=== PATIENT | male | born 1955 | race Caucasian/White ===

== ENCOUNTER → 2018-04-28 | Outpatient (CLI) | payer BC ==
--- NOTE | 2018-04-28 16:49 | US ---
EXAMINATION TYPE: US venous doppler duplex LE RT DATE OF EXAM: 04/28/2018 4:30 PM COMPARISON: NONE CLINICAL HISTORY: M79.669 PAIN IN LOWER RT LEG. Right lower leg pain and swelling following knee repl acement surgery on SIDE PERFORMED: Right TECHNIQUE: The lower extremity deep venous system is examined utilizing real time linear array sonog ed with graded compression, doppler sonography and color-flow sonography. VESSELS IMAGED: External Iliac Vein (EIV) Common Femoral Vein Deep Femoral Vein Greater Saphenous Vein * Femoral Vein Popliteal Vein Small Saphenous Vein * Proximal Calf Veins (* superficial vessels) Right Leg: Positive for DVT proximal popliteal vein through proximal calf veins IMPRESSION: There is evidence for acute deep venous thrombosis below the knee involving the popliteal and tibial veins.
== END | disposition home or self-care (01) ==
LOC: RADUSWWP 16:05
PROVIDERS: ATTEND Orthopaedic Surgery Adult Reconstructive Orthopaedic Surgery
DX: I82.431 Acute embolism and thrombosis of right popliteal vein (principal); I82.441 Acute embolism and thrombosis of right tibial vein

== ENCOUNTER → 2018-07-14 | Outpatient (CLI) | payer BC ==
[2018-07-14 16:40] LABS: T4, Free (Free Thyroxine) 0.9 ng/dL (0.80-1.80)
[2018-07-14 17:14] LABS: Iron Saturation 23.4 (15.00-50.00)
== END | disposition home or self-care (01) ==
LOC: LABWHC1 09:42
PROVIDERS: ATTEND Internal Medicine Critical Care Medicine
DX: G25.81 Restless legs syndrome (principal)
CPT/HCPCS: 36415; 82728; 83540; 83550; 84439; 84443

== ENCOUNTER 2019-10-31 12:35 | Emergency (ER) | payer MEDICARE, BC ==
[2019-10-31 12:45] VITALS: RESP 18; TEMP 98
[2019-10-31] MEDS ORDERED: LORazepam 1 MG TAB PO STA ×2 (13:03→21:10)
--- NOTE | 2019-10-31 13:05 | ED ---
Psych HPI - General Source: patient, family, RN notes reviewed Mode of arrival: ambulatory - History of Present Illness MD Complaint: suicidal ideation, feels depressed, other <Zacarias Rodriguez - Last Filed: 10/31/19 15:29> <Jossy Young - Last Filed: 11/04/19 11:38> - General Chief Complaint: Psychiatric Symptoms Stated Complaint: Mental Health Time Seen by Provider: 10/31/19 12:49 - History of Present Illness Initial Comments: This is a 64-year-old male with a history of anxiety disorders a significant feeling very very anxious recently. He is not a why. He's been on Paxil he's been on Xanax he has actually had the doses of these increased the Paxil dose and that she was increased from 20-30 and then lately up to 40 mg. This was 4 days ago. Also his Xanax prescription is been increased to 3 times a day. He states he's not having thoughts of hurting himself he normally will get relief from sleeping but has not recently. He states that he was willing kill himself would be with pills as he is not a violent person. He denies any alcohol intake or any illegal drug abuse. This is confirmed by his was present. No other medical issues at this time no other modifying factors (Zacarias Rodriguez) - Related Data Home Medications Medication Instructions Recorded Confirmed ALPRAZolam [Xanax] 0.25 mg PO TID PRN 10/31/19 10/31/19 Allopurinol [Zyloprim] 300 mg PO DAILY 10/31/19 10/31/19 Aspirin EC [Ecotrin Low Dose] 81 mg PO DAILY 10/31/19 10/31/19 Atenolol [Tenormin] 25 mg PO DAILY 10/31/19 10/31/19 Atorvastatin Calcium [Lipitor] 20 mg PO HS 10/31/19 10/31/19 PARoxetine HCL 40 mg PO DAILY 10/31/19 10/31/19 Testosterone Cypionate 400 mg IM Q30D 10/31/19 10/31/19 [Depo-Testosterone] rOPINIRole HCL [Requip] 0.5 mg PO HS 10/31/19 10/31/19 Previous Rx's Medication Instructions Recorded LORazepam [Ativan] 1 mg PO TID PRN 3 Days #9 tab 10/31/19 Allergies Allergy/AdvReac Type Severity Reaction Status Date / Time No Known Allergies Allergy Verified 10/31/19 17:36 Review of Systems ROS Other: All systems not noted in ROS Statement are negative. <Zacarias Rodriguez - Last Filed: 10/31/19 15:29> ROS Other: All systems not noted in ROS Statement are negative. <Jossy Young - Last Filed: 11/04/19 11:38> ROS Statement: Those systems with pertinent positive or pertinent negative responses have been documented in the HPI. Past Medical History Past Medical History: Hyperlipidemia, Hypertension Past Surgical History: Cholecystectomy, Hysterectomy, Orthopedic Surgery Past Psychological History: Anxiety, Bipolar Smoking Status: Never smoker Past Alcohol Use History: Rare Past Drug Use History: None Reported <Zacarias Rodriguez - Last Filed: 10/31/19 15:29> General Exam Limitations: no limitations General appearance: alert, anxious Head exam: Present: atraumatic, normocephalic, normal inspection Eye exam: Present: normal appearance, PERRL, EOMI. Absent: scleral icterus, conjunctival injection, periorbital swelling ENT exam: Present: normal exam, mucous membranes moist Neck exam: Present: normal inspection. Absent: tenderness, meningismus, lymphadenopathy Respiratory exam: Present: normal lung sounds bilaterally. Absent: respiratory distress, wheezes, rales, rhonchi, stridor Cardiovascular Exam: Present: regular rate, normal rhythm, normal heart sounds. Absent: systolic murmur, diastolic murmur, rubs, gallop, clicks GI/Abdominal exam: Present: soft, normal bowel sounds. Absent: distended, tenderness, guarding, rebound, rigid Extremities exam: Present: normal inspection, full ROM, normal capillary refill. Absent: tenderness, pedal edema, joint swelling, calf tenderness Back exam: Present: normal inspection Neurological exam: Present: alert, oriented X3, CN II-XII intact Psychiatric exam: Present: depressed, anxious, suicidal ideation Skin exam: Present: warm, dry, intact, normal color. Absent: rash <Zacarias Rodriguez - Last Filed: 10/31/19 15:29> - General Exam Comments Initial Comments: This is a well-developed well-nourished awake alert oriented times female he is anxious and rolling in bed back and forth (Zacarias Rodriguez) Course <Zacarias Rodriguez - Last Filed: 10/31/19 15:29> Vital Signs 10/31/19 10/31/19 10/31/19 12:41 17:24 21:18 Temperature 98.0 F Pulse Rate 72 72 79 Respiratory 18 18 18 Rate Blood Pressure 145/90 123/70 125/85 O2 Sat by Pulse 98 95 95 Oximetry - Reevaluation(s) Reevaluation #1: 10/31/19 15:29 The patient's care will be endorsed to Dr. Young after change. (Zacarias Rodriguez) Medical Decision Making <Jossy Young - Last Filed: 11/04/19 11:38> - Medical Decision Making Patient evaluated by the EPS nurse, psychatrist and myself. Patient not suicidal or homicidal. Requesting change in medications for morning anxiety. Psych recommends providing the patient with Ativan 1 mg TID prn for 2 days and patient has follow up appointment on Saturday. I discussed this with the patient and his who were agreeable to the plan. Patient instructed to return to the ED for any new or worsening symptoms. (Jossy Young) - Lab Data Lab Results 10/31/19 Range/Units 13:12 Urine Opiates Screen Not Detected (NotDetected) Ur Oxycodone Screen Not Detected (NotDetected) Urine Methadone Screen Not Detected (NotDetected) Ur Propoxyphene Screen Not Detected (NotDetected) Ur Barbiturates Screen Not Detected (NotDetected) U Tricyclic Antidepress Not Detected (NotDetected) Ur Phencyclidine Scrn Not Detected (NotDetected) Ur Amphetamines Screen Not Detected (NotDetected) U Methamphetamines Scrn Not Detected (NotDetected) U Benzodiazepines Scrn Detected H (NotDetected) Urine Cocaine Screen Not Detected (NotDetected) U Marijuana (THC) Screen Not Detected (NotDetected) Disposition <Zacarias Rodriguez - Last Filed: 10/31/19 15:29> Is patient prescribed a controlled substance at d/c from ED?: Yes When asked, does pt state using other controlled substances?: Yes If prescribed controlled substance>3 days was MAPS reviewed?: Prescribed <3 Days Time of Disposition: 21:10 <Jossy Young - Last Filed: 11/04/19 11:38> Clinical Impression: Acute anxiety Disposition: HOME SELF-CARE Condition: Stable Instructions (If sedation given, give patient instructions): Anxiety (ED) Additional Instructions: Please follow-up on Saturday with mental health. Return to the emergency room for any new or worsening symptoms Prescriptions: LORazepam [Ativan] 1 mg PO TID PRN 3 Days #9 tab PRN Reason: Anxiety Referrals: Gerard Fuentes MD [Primary Care Provider] - 1-2 days
[2019-10-31 14:53] LABS: Amphetamine Screen,Urine Not Detected (NotDetected); Barbiturate Screen,Urine Not Detected (NotDetected); Benzodiazepines Screen,Urine Detected (NotDetected); Cocaine Screen,Urine Not Detected (NotDetected); Methadone Screen, Urine Not Detected (NotDetected); Opiate Screen,Urine Not Detected (NotDetected); Oxycodone Screen, Urine Not Detected (NotDetected); Phencyclidine Screen,Urine Not Detected (NotDetected); Tricyclic Antidepressant,Urine Not Detected (NotDetected); Urn Cannabinoid Scrn Not Detected (NotDetected)
[2019-10-31] MEDS ORDERED: LORazepam 2 MG/ML INJ IM STA (16:04)
[2019-10-31 21:18] VITALS: BP 125/85; PULSE 79
== END 2019-10-31 21:18 | disposition home or self-care (01) ==
LOC: EC 12:35
DX: F41.9 Anxiety disorder, unspecified (principal); F32.9 Major depressive disorder, single episode, unspecified; R45.851 Suicidal ideations; E78.5 Hyperlipidemia, unspecified; I10 Essential (primary) hypertension; Z79.82 Long term (current) use of aspirin; Z79.899 Other long term (current) drug therapy
CPT/HCPCS: 82075; 80306; 99285; 96372; J2060

== ENCOUNTER 2021-02-09 11:44 | Emergency (ER) | payer MEDICARE, BC ==
[2021-02-09 12:04] VITALS: RESP 18
--- NOTE | 2021-02-09 13:14 | US ---
EXAMINATION TYPE: US venous doppler duplex LE RT DATE OF EXAM: 02/09/2021 12:55 PM COMPARISON: 04/28/2018 CLINICAL HISTORY: 65-year-old male pain, redness,. On baby aspirin. Calf pain. No swelling. SIDE PERFORMED: Right TECHNIQUE: The lower extremity deep venous system is examined utilizing real time linear array sonog ed with graded compression, doppler sonography and color-flow sonography. VESSELS IMAGED: Common Femoral Vein Deep Femoral Vein Greater Saphenous Vein * Femoral Vein Popliteal Vein Small Saphenous Vein * Proximal Calf Veins (* superficial vessels) Right Leg: Negative for DVT IMPRESSION: No evidence for DVT within the right lower extremity imaged from the groin to the upper calf.
[2021-02-09] MEDS ORDERED: cefTRIAXone 1,000 MG VIAL (IM USE) IM STA (13:59)
--- NOTE | 2021-02-09 14:08 | ED ---
General Adult HPI - General Chief complaint: Extremity Problem,Nontraumatic Stated complaint: rt sided pain Time Seen by Provider: 02/09/21 12:14 Source: patient Mode of arrival: ambulatory Limitations: no limitations - History of Present Illness Initial comments: 65-year-old male presents to the emergency room for a chief complaint of right leg pain. Patient states he has pain to the upper right calf and posterior knee. Patient states this started a couple days ago. States he called his doctor who told him to just come to the emergency room for an ultrasound. Patient does take aspirin, no other blood thinners. Denies fevers or chills. Patient has no other complaints at this time including shortness of breath, chest pain, abdominal pain, nausea or vomiting, headache, or visual changes. - Related Data Home Medications Medication Instructions Recorded Confirmed ALPRAZolam [Xanax] 0.25 mg PO TID PRN 10/31/19 10/31/19 Allopurinol [Zyloprim] 300 mg PO DAILY 10/31/19 10/31/19 Aspirin EC [Ecotrin Low Dose] 81 mg PO DAILY 10/31/19 10/31/19 Atorvastatin Calcium [Lipitor] 20 mg PO HS 10/31/19 10/31/19 PARoxetine HCL 40 mg PO DAILY 10/31/19 10/31/19 Testosterone Cypionate 400 mg IM Q30D 10/31/19 10/31/19 [Depo-Testosterone] atenoloL [Tenormin] 25 mg PO DAILY 10/31/19 10/31/19 rOPINIRole HCL [Requip] 0.5 mg PO HS 10/31/19 10/31/19 Previous Rx's Medication Instructions Recorded LORazepam [Ativan] 1 mg PO TID PRN 3 Days #9 tab 10/31/19 Cephalexin [Keflex] 500 mg PO Q6HR 10 Days #40 cap 02/09/21 Allergies Allergy/AdvReac Type Severity Reaction Status Date / Time No Known Allergies Allergy Verified 02/09/21 12:04 Review of Systems ROS Statement: Those systems with pertinent positive or pertinent negative responses have been documented in the HPI. ROS Other: All systems not noted in ROS Statement are negative. Past Medical History Past Medical History: Deep Vein Thrombosis (DVT), Hyperlipidemia, Hypertension History of Any Multi-Drug Resistant Organisms: None Reported Past Surgical History: Cholecystectomy, Joint Replacement, Orthopedic Surgery Additional Past Surgical History / Comment(s): rt knee replacement Past Psychological History: Anxiety, Bipolar Smoking Status: Never smoker Past Alcohol Use History: Rare Past Drug Use History: None Reported General Exam Limitations: no limitations General appearance: alert, in no apparent distress Head exam: Present: atraumatic Eye exam: Present: normal appearance, PERRL, EOMI. Absent: scleral icterus, conjunctival injection ENT exam: Present: normal exam, mucous membranes moist Neck exam: Present: normal inspection, full ROM. Absent: tenderness Respiratory exam: Present: normal lung sounds bilaterally. Absent: respiratory distress, wheezes Cardiovascular Exam: Present: regular rate, normal rhythm, normal heart sounds GI/Abdominal exam: Present: soft, normal bowel sounds. Absent: distended, tenderness Extremities exam: Present: full ROM (Full range of motion of the right knee and ankle), tenderness (Tenderness to the posterior proximal calf and posterior knee. No tenderness to the distal calf or distal thigh), normal capillary refill (Capillary refill less than 2 seconds, radial pulse 2+ right lower extremity), calf tenderness, other (Patient has some tenderness to the proximal posterior right calf. Patient has erythema extending from just below the knee joint to the mid calf.). Absent: joint swelling (No edema of the knee joint. No erythema of the anterior knee) Course Vital Signs 02/09/21 12:00 Temperature 97.9 F Pulse Rate 60 Respiratory 18 Rate Blood Pressure 125/83 O2 Sat by Pulse 95 Oximetry Medical Decision Making - Medical Decision Making Ultrasound was obtained which showed no evidence of DVT within the right lower extremity image from the groin to the upper calf. Therefore he'll likely has cellulitis given is warm and red. Patient vitals are stable and we will try outpatient therapy initially. Patient will be treated with IM Rocephin and Keflex. Patient will follow up with his doctor in one to 2 days. I did discuss that he will need to return here if the redness is spreading. He is aware may spread a small amount in the next 24 hours but if it is significant amount or if it is not stating to improve after 24 hours he should return to the emergency room. Disposition Clinical Impression: Cellulitis, Leg pain Disposition: HOME SELF-CARE Condition: Good Instructions (If sedation given, give patient instructions): Cellulitis (ED) Additional Instructions: Please take antibiotic as directed. Follow-up with your doctor in one to 2 days or a recheck of the redness to make sure it is improving.. Return to the emergency room for any worsening symptoms. If redness is spreading more than a small amount over the next 24 hours return to the emergency room for further evaluation. Prescriptions: Cephalexin [Keflex] 500 mg PO Q6HR 10 Days #40 cap Is patient prescribed a controlled substance at d/c from ED?: No Referrals: Gerard Fuentes MD [Primary Care Provider] - 1-2 days Time of Disposition: 14:07
[2021-02-09 14:30] VITALS: BP 120/78; PULSE 66; TEMP 98
== END 2021-02-09 14:28 | disposition home or self-care (01) ==
LOC: EC 11:44
DX: L03.115 Cellulitis of right lower limb (principal); I10 Essential (primary) hypertension; E78.5 Hyperlipidemia, unspecified; F31.9 Bipolar disorder, unspecified; F41.9 Anxiety disorder, unspecified; Z79.82 Long term (current) use of aspirin; Z79.899 Other long term (current) drug therapy
CPT/HCPCS: 93971; 99283; 96372; J0696

== ENCOUNTER 2021-12-22 05:50 | Day surgery (SDC) | payer MEDICARE, BC ==
[2021-12-21 13:16] VITALS: BMI 35.9
[~2021-12-22 05:50] MED LIST: LACTATED RINGERS 1,000 ML IV SCH; LIDOCAINE 1% (10MG/ML) FOR IV START INTRADERMA PRN
[2021-12-22] MEDS ORDERED: LACTATED RINGERS 1,000 ML IV ONE (06:16)
[2021-12-22 06:22] VITALS: TEMP 96.6
[2021-12-22] MEDS ORDERED: LIDOCAINE 2% INJ 20 MG/ML (2 ML VIAL) ONE (06:55)
[2021-12-22] MEDS ORDERED: PROPOFOL 10 MG/ML 20 ML VIAL IV ONE (06:55)
--- NOTE | 2021-12-22 07:26 | P.PCN ---
Date of Procedure: 12/22/21 Procedure(s) Performed: Brief history: Patient is a pleasant 66-year-old white male scheduled for an elective upper endoscopy as well as colonoscopy as a part of evaluation of intermittent dysphagia to solids and screening for colon cancer. His family history of colon cancer diagnosed in Procedure performed: Esophagogastroduodenoscopy with biopsy and dilation Colonoscopy Preoperative diagnosis: Intermittent dysphagia to solids Screening for colon cancer and family history of colon cancer Anest[place]: [facility] [place]: After informed consent was obtained from the patient was brought into the endoscopy unit and IV sedation was administered by anesthesia under continuous monitoring. Initially upper endoscopy was done. The Olympus GF 160 video endoscope was inserted inserted into the mouth and esophagus intubated without any difficulty and was gradually advanced into the stomach and duodenum and carefully examined. The bulb and second part of the duodenum appeared normal. The scope was then withdrawn into the stomach adequately insufflated with air and upon careful examination the antrum and body, cardia and fundus appeared normal. The scope was then withdrawn into the esophagus. Small hiatal hernia noted. The GE junction was located at 40 cm to the incisors. There was a distal esophageal Schatzki's ring identified and this was dilated using 18-20 mm TTS balloon in a sequential fashion for 60 seconds. THe GE junction but appeared regular with no erythema erosions or ulcerations. Rest of the esophagus appeared normal. In the proximal esophagus there was a 3 mm polyp that was biopsied. Patient tolerated the procedure well. At this time the patient continued to remain sedation. Initial digital rectal examination was normal. Olympus CF 160 video colonoscope was then inserted into the rectum and gradually advanced to the cecum without any difficulty. Careful examination was performed as the scope was gradually being withdrawn. The prep was excellent. The cecum, ascending colon, transverse colon, descending colon, sigmoid colon and rectum appeared normal. Retroflexion was performed in the rectum and no lesions were noted. Patient tolerated the procedure well. Impression: 1. Upper endoscopy revealed distal esophageal Schatzki's ring status post balloon dilation using 18-20 mm TTS balloon in a small hiatal hernia. Small esophageal polyp status post biopsy 2. Colonoscopy was within normal limits with no evidence of colorectal neoplasia Recommendations: Findings of this examination were discussed with the patient as well as His family. He was advised to follow with the biopsy results. Recommend repeat colonoscopy in 5 years because of the family history of colon cancer.
[2021-12-22 07:35] VITALS: RESP 16
[2021-12-22 07:54] VITALS: BP 113/76; PULSE 54
== END 2021-12-22 08:34 | disposition home or self-care (01) ==
LOC: ORWHC2ENDO 05:50
PROVIDERS: ATTEND Internal Medicine Gastroenterology
DX: K22.2 Esophageal obstruction (principal); K22.81 Esophageal polyp; K44.9 Diaphragmatic hernia without obstruction or gangrene; Z12.11 Encounter for screening for malignant neoplasm of colon; Z80.0 Family history of malignant neoplasm of digestive organs; I10 Essential (primary) hypertension; E78.5 Hyperlipidemia, unspecified; F41.9 Anxiety disorder, unspecified; F31.9 Bipolar disorder, unspecified; Z86.718 Personal history of other venous thrombosis and embolism; Z79.899 Other long term (current) drug therapy; Z79.82 Long term (current) use of aspirin
CPT/HCPCS: 88305; 43239; 43249; J2704; J2001; C1726; G0105; 45378

== ENCOUNTER 2024-01-17 15:41 | Emergency (ER) | payer MEDICARE, BC ==
--- NOTE | 2024-02-18 18:15 | US ---
Patient Harpreet Griffith ID [id number] Order # EXAMINATION TYPE: US venous doppler duplex LE LT DATE OF EXAM: 01/18/2024 9:24 AM COMPARISON: No comparison available on downtime PACS. CLINICAL INDICATION: Previous right lower extremity DVT, new onset left knee swelling and pain SIDE PERFORMED: Left TECHNIQUE: The lower extremity deep venous system is examined utilizing real time linear array sonog ed with graded compression, doppler sonography and color-flow sonography. VESSELS IMAGED: Common Femoral Vein Deep Femoral Vein Greater Saphenous Vein * Femoral Vein Popliteal Vein Small Saphenous Vein * Proximal Calf Veins (* superficial vessels) Left Leg: Negative for DVT Left popliteal space there is a complex collection measuring 4.4 x 1.9 x 1.3 cm. Popliteal cyst or he matoma could be considered. Follow-up as clinically indicated. IMPRESSION: 1. Left lower extremity ultrasound negative for deep venous thrombosis. 2. Complex collection within the popliteal space, correlate for popliteal cyst. Differential could in clude hematoma.
== END 2024-01-17 21:45 | disposition home or self-care (01) ==
LOC: EC 15:41
CPT/HCPCS: 99283